=== PATIENT | female | born 1995 | race Caucasian/White ===

== ENCOUNTER 2019-12-12 00:55 | Emergency (ER) | payer OTHER ==
[~2019-12-12] VITALS: Ht 172.7 cm; Wt 66.2 kg
[2019-12-12] MEDS ORDERED: KETOROLAC TROMETHAMINE 60 MG INJ IM ONE ×2 (01:30)
--- NOTE | 2019-12-12 02:40 | NUR ---
Patient discharged to home in stable conditon. Written and verbal after care instructions given. Patient verbalizes understanding of instructions. Ambulated from ER with stable gait. All belongings with patient. Driven home by significant other.
[2019-12-12 02:41] VITALS: BP 131/87
== END 2019-12-12 02:41 | disposition home or self-care (01) ==
LOC: ER 01:03
DX: S62.304A Unspecified fracture of fourth metacarpal bone, right hand, initial encounter for closed fracture (principal); R51 Headache; R11.0 Nausea; V43.52XA Car driver injured in collision with other type car in traffic accident, initial encounter; Y93.89 Activity, other specified; Y92.410 Unspecified street and highway as the place of occurrence of the external cause; Y99.8 Other external cause status
CPT/HCPCS: 73130; 96372; 99283; J1885; A4663